=== PATIENT | female | born 1985 | race Caucasian/White ===

== ENCOUNTER → 2018-10-20 | Outpatient (CLI) | payer OTHER ==
--- NOTE | 2018-10-20 12:38 | WOMENS IMAGING REPORT ---
EXAM DESCRIPTION: 3D SCREENING MAMMO BILAT COMPLETED DATE/TIME: 10/20/2018 11:48 am REASON FOR STUDY: Z80.3 FAMILY HISTORY OF BREAST CANCER Z80.3 FAMILY HISTORY OF MALIGNANT NEOPLASM OF BREAST COMPARISON: None. EXAM PARAMETERS: Views: Standard craniocaudal and mediolateral oblique views of each breast recorded using digital acquisition and breast tomosynthesis. Read with the assistance of CAD. .[facility] - [employer] Version 9.2 LIMITATIONS: None. FINDINGS: No suspicious masses, suspicious calcifications or architectural distortion. No areas of c oncern. IMPRESSION: NEGATIVE MAMMOGRAM. BIRADS 1. BREAST DENSITY: d. The breasts are extremely dense, which lowers the sensitivity of mammography. BIRAD: ASSESSMENT: 1 NEGATIVE RECOMMENDATION: ROUTINE SCREENING COMMENT: The patient has been notified of the results by letter per SA requirements. Additional no tification policies are in place for contacting patient with suspicious or incomplete findings. Quality ID #225: The [employer] recommends an annual screening mammogram for women aged 40 years or over. This facility utilizes a reminder system to ensure that all patients receive reminder letters, and/or direct phone calls for appointments. This includes reminders for routine scr eening mammograms, diagnostic mammograms, or other Breast Imaging Interventions when appropriate. Th is patient will be placed in the appropriate reminder system. TECHNICAL DOCUMENTATION: FINDING NUMBER: (1) ASSESSMENT: (1) JOB ID: [id number] [employer]- All Rights Reserved Reading location - IP/workstation name: [email or web address]
== END ==
LOC: WI 11:05
PROVIDERS: ATTEND Family Medicine
DX: Z12.31 Encounter for screening mammogram for malignant neoplasm of breast (principal); Z80.3 Family history of malignant neoplasm of breast
CPT/HCPCS: 77063; 77067

== ENCOUNTER → 2018-12-30 | Outpatient (CLI) | payer OTHER ==
--- NOTE | 2018-12-30 16:44 | RADIOLOGY REPORT (SQ) ---
EXAM DESCRIPTION: SHOULDER LEFT 2 OR MORE VIEWS COMPLETED DATE/TIME: 12/30/2018 4:25 pm REASON FOR STUDY: PAIN IN LEFT SHOULDER M25.512 PAIN IN LEFT SHOULDER COMPARISON: None. NUMBER OF VIEWS: Three view. TECHNIQUE: Internal rotation, external rotation, and Y view images acquired of the left shoulder. LIMITATIONS: None. FINDINGS: MINERALIZATION: Normal. BONES: No acute fracture. No worrisome bone lesions. No significant osteophytes. GLENOHUMERAL JOINT: No significant findings. ACROMIOCLAVICULAR JOINT: No large osteophytes. SOFT TISSUES: No calcifications. VISUALIZED RIBS, SPINE, AND LUNG: No other significant finding. OTHER: No other significant finding. IMPRESSION: NEGATIVE STUDY OF THE LEFT SHOULDER. NO EXPLANATION FOR PAIN. TECHNICAL DOCUMENTATION: JOB ID: [id number] [employer]- All Rights Reserved Reading location - IP/workstation name: [email or web address]
== END ==
LOC: OD 16:15
PROVIDERS: ATTEND Family Medicine
DX: M25.512 Pain in left shoulder (principal)

== ENCOUNTER → 2019-06-06 | Outpatient (CLI) | payer OTHER ==
--- NOTE | 2019-06-08 08:53 | RADIOLOGY REPORT (SQ) ---
EXAM DESCRIPTION: MRI BREAST BILATERAL W/WO IMAGES COMPLETED DATE/TIME: 06/06/2019 2:56 pm REASON FOR STUDY: (N63.20)UNSPECIFIED LUMP IN THE LEFT BREAST, UNSPECIFIED QUADRANT N63.20 UNSPECIF IED LUMP IN THE LEFT BREAST, UNSPECIFIED QUAD Z80.3 FAMILY HISTORY OF MALIGNANT NEOPLASM OF BREAST COMPARISON: None. PATHOLOGIC CORRELATION: None. CONTRAST TYPE AND DOSE: 20 mL Dotarem. RENAL FUNCTION: Not indicated. TECHNIQUE: MR imaging performed with a dedicated breast coil. Pre contrast T1 and T2 weighted images . Pre contrast and post contrast enhanced T1 weighted images with fat saturation. Subtraction images, 3D thick and thin MIPS, and kinetic analysis performed on an independent workstat ion. ([employer] workstation) Magnet strength: 1.5 T LIMITATIONS: None. FINDINGS: BREAST DENSITY: d. The breasts are extremely dense, which lowers the sensitivity of mammog brittany. BACKGROUND PARENCHYMAL ENHANCEMENT:Minimal. RIGHT BREAST: Well-circumscribed 7 mm mass about 4.5 cm deep to the nipple. Type 1 curve. Mild fib rocystic change. CHEST WALL: Normal tissue planes. No abnormal internal mammary nodes. AXILLA: Normal axillary and retro-pectoral nodes. LEFT BREAST:Dominant mass with irregular margins lateral subareolar measuring about 13 mm. Multiple additional smaller enhancing masses with irregular margins throughout the breast. Mild fibrocystic change. CHEST WALL: Normal tissue planes. No abnormal internal mammary nodes. AXILLA: Normal axillary and retro-pectoral nodes. OTHER:No identified liver, bone, or lung lesions. No other significant incidental findings. IMPRESSION: 1. Multiple masses in the left breast worrisome for multifocal carcinoma. Dominant mass lateral suba reolar may correspond to palpable abnormality however no history was given describing location of the palpable abnormality. 2. Indeterminate smaller mass in the right breast possibly a fibroadenoma. BIRAD: RIGHT BREAST: 0 Incomplete: Need additional imaging evaluation and/or prior mammograms for co mparison. LEFT BREAST: 0 Incomplete: Need additional imaging evaluation and/or prior mammograms for comparison. RECOMMENDATION: RECOMMENDED FOLLOW-UP: Bilateral diagnostic mammograms and bilateral ultrasound for biopsy planning. TECHNICAL DOCUMENTATION: JOB ID: [id number] 2010 [employer]- All Rights Reserved Reading location - IP/workstation name: [email or web address]
== END ==
LOC: RAD 12:42
PROVIDERS: ATTEND Family Medicine
DX: N63.42 Unspecified lump in left breast, subareolar (principal); N63.10 Unspecified lump in the right breast, unspecified quadrant; Z80.3 Family history of malignant neoplasm of breast
CPT/HCPCS: 77049; A9576

== ENCOUNTER → 2019-06-20 | Day surgery (SDC) | payer OTHER ==
[~2019-06-20] MED LIST: LIDOCAINE 1% INJ-PF (10 MG/ML) 30 ML SDV ONE
--- NOTE | 2019-06-20 11:14 | RADIOLOGY REPORT (SQ) ---
EXAM DESCRIPTION: ARTHRO SHOULDER INJECTION; FLUORO/NEEDLE PLACEMENT IMAGES COMPLETED DATE/TIME: 06/20/2019 9:40 am REASON FOR STUDY: PAIN IN LEFT SHOULDER (M25.512) M25.512 PAIN IN LEFT SHOULDER COMPARISON: None. FLUOROSCOPY TIME: 10 SECONDS OF FLUOROSCOPY WAS USED. 1 next images saved to PACS. LIMITATIONS: None. PROCEDURE: Procedure, risks, benefits and alternatives explained to patient who then gave written co nsent. The left shoulder was marked and a time out was called for correct procedure verification. Po sterior entry site marked using fluoroscopic guidance. Shoulder prepped and draped using sterile rashad hnique. Local anesthesia achieved using 1% lidocaine injection. Hypodermic needle introduced into t he joint space under direct fluoroscopic visualization. Non-ionic contrast instilled to confirm intra -articular position. Dilute gadolinium solution then injected. Needle removed and entry site covered with sterile bandage. No immediate complications noted. TECHNIQUE: Digital images acquired during fluoroscopy and stored on PACS. Patient immediately take n to the MR suite for additional imaging. INJECTION LOCATION: Posterior left shoulder. CONTRAST TYPE AND AMOUNT: 10 mL Dotarem/Saline mixture. IMPRESSION: SUCCESSFUL NEEDLE PLACEMENT AND INJECTION FOR LEFT SHOULDER MR ARTHROGRAM USING POSTERIO R APPROACH. COMMENT: Quality ID 145: Final reports for procedures using fluoroscopy that document radiation exp osure indices, or exposure time and number of fluorographic images (if radiation exposure indices are not available) TECHNICAL DOCUMENTATION: JOB ID: [id number] 2010 [employer]- All Rights Reserved Reading location - IP/workstation name: [email or web address] [id number]
--- NOTE | 2019-06-20 11:38 | RADIOLOGY REPORT (SQ) ---
EXAM DESCRIPTION: MRI LT UPPER JOINT WITH IMAGES COMPLETED DATE/TIME: 06/20/2019 10:00 am REASON FOR STUDY: PAIN IN LEFT SHOULDER (M25.512) M25.512 PAIN IN LEFT SHOULDER COMPARISON: Arthrogram same date, Left shoulder films 12/30/2018 TECHNIQUE: Post arthrogram MRI left shoulder images acquired and stored on PACS. Oblique coronal, ob lique sagittal, and axial imaging to include fat sensitive sequences as T1, water sensitive sequences as FST2/STIR, and contrast sensitive sequences as FST1. LIMITATIONS: None. FINDINGS: JOINT DISTENTION: Adequate distention for interpretation. No leakage of contrast into the subacromial/subdeltoid bursa BONE MARROW AND CORTEX: Normal. No significant osteophytes. No edema or defects. AC JOINT: Type II acromion. No significant AC joint arthropathy. GLENOHUMERAL JOINT: No subluxation or dislocation. No focal chondral defects or reactive bone changes . ROTATOR CUFF: Intact without significant tendinopathy, partial or full-thickness tears. No peritendin itis. LABRUM AND BICEPS LABRAL COMPLEX: Normal signal in the rotator interval without tear of the superior glenohumeral ligament. Intra-articular long head biceps tendon is high in signal on sagittal images 8-11 from tendinopathy. No superior labral tear or paralabral cyst. Distal biceps in normal anatomi c location in bicipital groove. INFERIOR LABRAL COMPLEX: Bony glenoid and labrum intact. IGHL intact without thickening or tear. No p aralabral cysts. ADJACENT SOFT TISSUES: No masses or nodes. OTHER: No other significant finding. IMPRESSION: Intra-articular long head biceps tendinopathy. Definite superior labral tear by MR arth rogram. TECHNICAL DOCUMENTATION: JOB ID: [id number] 2010 [employer]- All Rights Reserved Reading location - IP/workstation name: [email or web address]
== END ==
LOC: RAD 08:37
PROVIDERS: ATTEND Orthopaedic Surgery
DX: M25.512 Pain in left shoulder (principal); S43.432A Superior glenoid labrum lesion of left shoulder, initial encounter; X58.XXXA Exposure to other specified factors, initial encounter; M75.22 Bicipital tendinitis, left shoulder
CPT/HCPCS: 73222; 77002; 23350; A9576; J3490

== ENCOUNTER → 2019-06-21 | Outpatient (CLI) | payer OTHER ==
--- NOTE | 2019-06-21 09:37 | WOMENS IMAGING REPORT ---
EXAM DESCRIPTION: BILAT DIAGNOSTIC MAMMO W/CAD; U/S BREAST UNILATERAL, COMPL IMAGES COMPLETED DATE/TIME: 06/21/2019 8:20 am; 06/21/2019 8:49 am REASON FOR STUDY: R92.8 OTHER ABNORMAL AND INCONCLUSIVE FINDINGS ON DIAGNOSTIC IMAGING OF [place]; LT BR EAST R92.8 R92.8 OTH ABN AND INCONCLUSIVE FINDINGS ON DX IMAGING OF [place] COMPARISON: MRI bilateral breasts 06/06/2019 Bilateral screening mammogram 10/20/2018 EXAM PARAMETERS: Standard craniocaudal and mediolateral oblique views of each breast recorded using digital acquisition. Additional left breast cone compression mammograms in the CC and MLO orientations, additional left wh ole breast 90 mediolateral view Left breast ultrasound was also performed. Read with the assistance of CAD: .[facility] - [employer] Version 9.2 LIMITATIONS: None. FINDINGS: RIGHT BREAST MASSES: No suspicious masses. CALCIFICATIONS: No new or suspicious calcifications. ARCHITECTURAL DISTORTION: None. ASYMMETRY: None noted. OTHER: No other significant findings. LEFT BREAST MASSES: Patient has a malignant appearing mass by MRI in the left breast about 3 cm from the nipple l aterally at the 3 o'clock position. Current exam demonstrates an ill-defined mass with pleomorphic c alcifications 3 cm from the nipple left breast at the 3 o'clock position, which correlates with the M RI findings. This is worrisome for malignancy. CALCIFICATIONS: Two other groups of pleomorphic calcifications are present in the left breast lateral ly, one group is 4 cm from the nipple in the lower outer quadrant left breast, the other is at the 3 o'clock position about 7 cm from the nipple. These do not appear to have a correlating mass on MRI f rom 06/06/2019. ARCHITECTURAL DISTORTION: None. ASYMMETRY: None noted. OTHER: No other significant finding. Left breast ultrasound: Ultrasound of the left breast in the 3 o'clock position 3 cm from the nipple. A hypoechoic solid mas s is present with calcifications, acoustic absorption and ill-defined margins measuring about 2.2 cm in size. This correlates with the malignant mass by MRI. This is worrisome for malignancy. Biopsy is recommended In the left breast 4 to 5 o'clock position about 4 cm from the nipple, a well-circumscribed hypoechoi c mass with internal calcifications is present measuring about 8 x 5 mm in size. This correlates wit h the calcification seen in the lower outer quadrant by tomosynthesis about 4 cm from the nipple. Th is is indeterminate for malignancy. Biopsy is recommended. Remainder of the ultrasound demonstrates abnormal breast parenchymal echotexture throughout the upper inner quadrant 8 to 9 o'clock position. This correlates with broad area of abnormal contrast enhanc ement throughout the upper inner quadrant on MRI, and could represent diffuse involvement with DCIS. This is worrisome for malignancy, biopsy is recommended Review of MRI 06/06/2019 demonstrated a 7 mm enhancing nodule with benign time activity curve about 5 cm from the nipple at the 9 o'clock position. Fluid like the patient to return to ultrasound for katya luation of this finding at the time of ultrasound-guided core biopsy of the dominant mass left breast periareolar 3 o'clock position. At time of repeat scanning with ultrasound, evaluation and medial left breast should be made for poss ible core biopsy of the areas worrisome for DCIS medially. Ultrasound of bilateral axilla should als o be performed. IMPRESSION: Mass in the left breast 3 cm from nipple 3 o'clock position highly suspicious for malign iqra on all modalities. Ultrasound-guided core biopsy, post biopsy clip placement and follow-up two- view mammogram recommended. 8 x 5 mm nodule with pleomorphic calcifications left breast 4 5 o'clock position for which ultrasound -guided core biopsy, post biopsy clip placement and follow-up two-view mammogram recommended. Abnormal medial left breast with altered echotexture correlates with broad bandlike area of abnormal MRI enhancement worrisome for DCIS. Ultrasound-guided core biopsy and post biopsy clip placement of this area is recommended. At the time of left breast ultrasound-guided core biopsy of the dominant mass, left breast should be reimaged for possible biopsy medially (of findings worrisome for DCIS at MR), and ultrasound-guided b iopsy of the 8 by 5 mm mass left breast at the 4 to 5 o'clock position. Right breast second-look ultrasound should be performed at the time of left breast biopsy Bilateral axilla ultrasound should be performed at the time of left breast biopsy, with biopsy of any suspicious lymph nodes at that time BREAST DENSITY: d. The breasts are extremely dense, which lowers the sensitivity of mammography. BIRAD: ASSESSMENT: Left breast BI-RADS 5, ultrasound-guided core biopsy, post biopsy clip placement with follow-up mammography recommended Right breast BI-RADS 0, ultrasound right breast/ axilla recommended at time of left breast biopsy for workup of 7 mm nodule laterally in the right breast 9 o'clock position. RECOMMENDATION: RECOMMENDED FOLLOW UP: Left breast biopsy under ultrasound Right breast ultrasound at that time SPECIFIC INTERVENTION/IMAGING/CONSULTATION RECOMMENDED:Left breast biopsy under ultrasound, right alpa ast ultrasound follow-up COMMUNICATION:Patient notified by letter COMMENT: The patient has been notified of the results by letter per SA requirements. Additional no tification policies are in place for contacting patient with suspicious or incomplete findings. Quality ID #225: The [employer] recommends an annual screening mammogram for women aged 40 years or over. This facility utilizes a reminder system to ensure that all patients receive reminder letters, and/or direct phone calls for appointments. This includes reminders for routine scr eening mammograms, diagnostic mammograms, or other Breast Imaging Interventions when appropriate. Th is patient will be placed in the appropriate reminder system. TECHNICAL DOCUMENTATION: FINDING NUMBER: (1) ASSESSMENT: (1) JOB ID: [id number] 2010 [email or web address]- All Rights Reserved Reading location - IP/workstation name: [email or web address]
== END ==
LOC: WI 07:50
PROVIDERS: ATTEND Family Medicine
DX: R92.8 Other abnormal and inconclusive findings on diagnostic imaging of breast (principal)
CPT/HCPCS: 76641; 77066